=== PATIENT | male | born 1990 | race African-American/Black ===

== ENCOUNTER 2023-01-28 15:48 | Emergency (ER) | payer OTHER, SELFPAY ==
--- NOTE | 2023-01-28 15:57 | ED.GENADULT ---
HPI - General Adult General Chief complaint: Skin/Abscess/Foreign Body Stated complaint: Painful bump on forehead Time Seen by Provider: 01/28/23 15:59 Source: patient Mode of arrival: ambulatory Limitations: no limitations History of Present Illness HPI narrative: Patient is a 32 year old assigned male at with no reported medical history presenting to the emergency department today with a bump on his forehead. Patient states that over the last 2 weeks he has a forehead bump that is getting bigger. Patient denies any dizziness, lightheadedness, abdominal pain, nausea, vomiting, fever, chills, blurry vision, double vision, loss of vision, chest pain, difficulty breathing, shortness of breath, back pain, night sweats, pain with urination, increased urinary frequency, increased urinary urgency, blood in his urine or stool, syncope or a near syncopal episode, recent trauma or falls, bowel incontinence, bladder incontinence, bowel retention, bladder retention, or any other complaints at this time. Onset (ago): week(s) (2) Location: face Radiation: non-radiation Severity: mild Severity scale (1-10): 3 Relieving factors: none Exacerbating factors: none Associated symptoms: denies other symptoms Treatments prior to arrival: none Related Data Allergies Allergy/AdvReac Type Severity Reaction Status Date / Time No Known Allergies Allergy Verified 01/28/23 16:02 Review of Systems Constitutional: Constitutional: Reports no additional constitutional complaints, Denies chills, Denies fever(s) and Denies night sweats Eyes: Eyes: Reports no additional eye complaints, Denies blurry vision, Denies change in vision, Denies diplopia, Denies eye discharge, Denies loss of vision and Denies eye pain ENT: Denies dizziness Comments: forehead bump Cardiovascular: Cardiovascular: Reports no additional cardiovascular complaints, Denies chest pain, Denies lightheadedness, Denies Loss of Consciousness and Denies dyspnea Respiratory: Respiratory: Reports no additional respiratory complaints and Denies dyspnea Gastrointestinal: Gastrointestinal: Reports no additional gastrointestinal complaints, Denies abdominal pain, Denies melena, Denies hematochezia, Denies change in bowel habits and Denies change in stool character Genitourinary: Genitourinary: Reports no additional male genitourinary complaints, Denies hematuria, Denies oliguria, Denies difficulty urinating, Denies dysuria, Denies urinary frequency, Denies urinary hesitancy, Denies urinary incontinence and Denies urinary urgency Musculoskeletal: Musculoskeletal: Reports no additional musculoskeletal complaints, Denies numbness and Denies tingling Neurologic: Denies dizziness, Denies loss of vision, Denies numbness and Denies tingling Psychiatric: Psychiatric: Reports no additional psychiatric complaints Endocrine: Endocrine: Reports no additional endocrine complaints Hematologic/Lymphatic: Hematologic/Lymphatic: Reports no additional hematologic/lymphatic complaints Allergic/Immunologic: Allergic/Immunologic: Reports no additional allergic/immunologic complaints PMFSH Past Medical History Attestation statement: The following information was validated with the patient. Source: old records reviewed and nursing notes reviewed Physical Exam ED Vital Signs: Vital Signs - 24 hr 01/28/23 15:59 Temperature 97.0 F Pulse Rate 76 Respiratory Rate 16 Blood Pressure 115/70 Pulse Oximetry 96 Oxygen Delivery Method Room Air BMI result Body Mass Index 29.9 Const General: cooperative, no acute distress, alert and awake Nutritional Appearance: well nourished Orientation/consciousness: patient oriented x3 Limitations: no limitations [facility] Head: Yes atraumatic Head images: 1. soft and mobile structure consistent with a cyst or lipoma, no erythema, no warmth, no fluctuance Ears: hearing grossly normal bilaterally and external ears normal General nose exam: Normal external nose present, no nasal discharge noted and no epistaxis Face and sinus: Yes normal facial exam, No abrasion and No laceration Mouth: Normal oral and palatal mucosa present, no drooling and no muffled voice Eyes General: appearance normal, both eyes and all related structures Periorbital: periorbital findings normal Eyelids: Yes eyelids normal Conjunctivae: conjunctivae normal Pupils: Equal, round and reactive pupils present EOM: EOMs intact bilaterally Neck Neck: Yes normal visual inspection, Yes full ROM and Yes no lymphadenopathy Chest Chest palpation & inspection: normal inspection of the chest Resp Effort & Inspection: normal respiratory effort and able to speak in complete sentences GI Inspection: Yes normal to inspection Neuro General: patient oriented x3 and moves all extremities Cranial nerves: Yes Equal, round and reactive pupils present Cognition (Neuro): normal cognition Motor exam (neuro): 5/5 motor strength present throughout Sensory Exam: Normal double simultaneous stimulation for sensation Coordination: [id number] test normal Extrem General: Yes normal to inspection, Yes full ROM and Yes capillary refill normal Psych Appearance: grossly normal Mental Status: mental status grossly normal Affect: normal affect Attitude: cooperative Thought process: Normal thought process present Thought content: Normal thought content present Insight: Good insight present (Psych) Medical Decision Making Medical Decision Making MDM Narrative: Patient is a 32 year old assigned male at with no reported medical history presenting to the emergency department today with a forehead cyst. Patient's physical exam was as noted in the physical exam portion of this chart. I explained my physical exam findings to the patient. I answered all questions asked by the patient. I stressed the importance of the patient taking his medication as prescribed. I stressed the importance of the patient following up with his primary care provider and a general surgeon. I stressed the importance of the patient returning to the emergency department immediately if his symptoms were to worsen or if he were to develop any dizziness, shortness of breath, difficulty breathing, chest pain, blurry vision, loss of vision, nausea, vomiting, abdominal pain, fever, chills, back pain, or any other complaints. Patient verbalized agreement and understanding with this treatment plan and discharge. Differential Diagnosis Differential Diagnoses: The differential diagnosis associated with the presentation includes Cyst Sebaceous cyst Lipoma Discharge Plan Discharge Clinical Impression: Cyst of soft tissue Patient Disposition: Home, Self-Care Instructions: Soft Tissue Mass (ED) Additional Instructions: Follow up with your primary care provider and a general surgeon. Return to the emergency department immediately if your symptoms worsen or if you develop any dizziness, shortness of breath, difficulty breathing, chest pain, blurry vision, loss of vision, nausea, vomiting, abdominal pain, fever, chills, back pain, or any other complaints. [place] [facility] [place] (Call to establish and follow up with a general surgeon. ) [facility] [place] (Call to establish and follow up with a primary care provider. If you already have a primary care provider, please follow up with them.) [facility] [place] [facility] [place] (Call to establish and follow up with a primary care provider. If you already have a primary care provider, please follow up with them.) [facility] [place] [facility] [place] (Call to establish and follow up with a primary care provider. If you already have a primary care provider, please follow up with them.) Interventions: ED Discharge Assessment Last Done: 01/28/23 16:15 Discharge Date/Time: 01/28/23 16:16 Print Language: Serbian
[2023-01-28 15:59] VITALS: BP 115/70; PULSE 76; RESP 16; TEMP 36.1; O2SAT 96; BMI 29.9
== END 2023-01-28 16:16 | disposition home or self-care (01) ==
PROVIDERS: Emergency Provider Emergency Medicine
DX: D17.0 Benign lipomatous neoplasm of skin and subcutaneous tissue of head, face and neck (principal)
CPT/HCPCS: 99282

== ENCOUNTER 2023-02-02 08:19 | Outpatient (AMB) | payer OTHER, SELFPAY ==
--- NOTE | 2023-02-02 08:20 | MHC.OFFVIS ---
Intake Vital Signs 02/02/23 08:21 Height 5 ft 6 in Weight 191 lb BMI 30.8 BP 116/69 Blood Pressure Location Rt brachial Position Sitting Pulse 55 Intake Visit Reasons: Cyst/ Mid forehead Intake Note: This patient for an assessment for cyst on the forehead. Patient c/o; Onset several month, cyst on the forehead, moves around, increased in size. Catering Administrative Assistant Required: No Accompanied by: Other Relationship Allergies No Known Allergies Allergy (Verified 02/02/23 08:30) Medication List - Last Reconciled 02/02/23 by Filemon Mera MD No Known Home Meds HPI Cyst/ Mid forehead HPI Details 32-year-old male referred for a mass on the forehead. He said he has noticed this for about a couple months. He says he even went to the ER yesterday because of this. Was then referred to me. He denies any drainage from the area. He denies any other significant complaints. [facility] Medical History (Updated 02/02/23 @ 08:44 by Filemon Mera MD) Lipoma of forehead Surgical History History of hernia repair History of surgery on wrist Review of Systems Const Denies chills and Denies fever(s) Card Denies chest pain, Denies dyspnea and Denies dyspnea on exertion Resp Denies cough, Denies dyspnea and Denies dyspnea on exertion GI Denies hematochezia and Denies change in bowel habits Denies hematuria and Denies difficulty urinating Musc Denies back pain and Denies limited range of motion Neuro Denies focal weakness and Denies convulsions Psych Denies depression and Denies mood swings Physical Exam Vital Signs: Last Vital Signs Pulse 55 02/02/23 08:21 BP 116/69 02/02/23 08:21 BMI result Body Mass Index 30.8 HEENT Other: Well-defined, mobile mass, about 1.5 cm, on the forehead, nonfluctuant, Assessment & Plan Assessment & Plan (1) Lipoma of forehead: Code(s): D17.0 - Benign lipomatous neoplasm of skin and subcutaneous tissue of head, face and neck Plan: He has a well-defined, movable mass on the forehead as described above. This appears to be subcutaneous. This is likely to be a lipoma versus a cyst. I explained to him the technique of excision under and local anesthesia. I reviewed the risks including but not limited to bleeding, infections and poor healing. He understands and wants to proceed. His significant other was with him during the visit This will be scheduled at the minor procedure room. Coding Level of Care Code New Pt Level 3 (75903) Diagnoses Lipoma of forehead D17.0
[2023-02-02 08:21] VITALS: BP 116/69; PULSE 55; BMI 30.8
== END 2023-02-02 08:56 | disposition home or self-care (01) ==
PROVIDERS: Visit Provider Surgery
DX: D17.0 Benign lipomatous neoplasm of skin and subcutaneous tissue of head, face and neck (principal)
CPT/HCPCS: 99203

== ENCOUNTER → 2023-02-02 08:19 | Outpatient (BNVA) | payer OTHER, SELFPAY | PROVIDERS: Visit Provider Surgery | DX: D17.0 Benign lipomatous neoplasm of skin and subcutaneous tissue of head, face and neck (principal) | CPT/HCPCS: 99202 ==

== ENCOUNTER 2023-02-18 12:35 | Outpatient (REF) | payer OTHER, SELFPAY ==
[2023-02-18 12:38] VITALS: BMI 31.3
[2023-02-18 12:40] VITALS: BP 122/77; PULSE 60; RESP 16; TEMP 36.7; O2SAT 99
--- NOTE | 2023-02-18 13:02 | W.PM.OPN ---
Operative Note Operative Note Date of Service: 02/18/23 Narrative: Preop diagnosis: Mass on forehead Postop diagnosis: Epidermal inclusion cyst, forehead Procedure: Excision of epidermal inclusion cyst, forehead Surgeon: Filemon Mera MD Patient is a 32-year-old male with a subcutaneous mass on the forehead. He wanted this removed. He understood the technique of excision under local anesthesia. He was aware of the risks, benefits, and alternatives. He was brought to the minor procedure room. Was placed supine. The area of the cyst was prepped and draped. Lidocaine 1% was used for local anesthesia. A surgical time-out had been done. I made short incision on the skin overlying this mass using blade 15 and this carried down through the full-thickness of the skin and subcutaneous fat until a cyst capsule visualized. I sharply dissected the cyst capsule off of the rest of the subcutaneous layer circumferentially until this was delivered and sent as a specimen. This was consistent with an epidermal inclusion cyst . This was about a 7 mm diameter cyst. I closed the incision with full-thickness nylon 5 0 simple interrupted sutures. Steri-Strips were applied. The procedure was completed. He tolerated procedure well. There were no immediate complications. Estimated blood loss about 10 cc. He was given wound care instructions and will be seen in the office for removal sutures.
[2023-02-18 13:05] VITALS: BP 121/72; PULSE 55; RESP 16; O2SAT 95
== END 2023-02-18 12:36 | disposition home or self-care (01) ==
LOC: HO.MS 12:35
PROVIDERS: Visit Provider Surgery
PROC: (CPT 11441; principal; 2023-02-18 13:00)
DX: L72.0 Epidermal cyst (principal)
CPT/HCPCS: 11441; 88304

== ENCOUNTER → 2023-02-18 12:35 | Outpatient (BNV) | payer OTHER, SELFPAY | PROVIDERS: Visit Provider Surgery | DX: L72.0 Epidermal cyst (principal) | CPT/HCPCS: 11441 ==

== ENCOUNTER 2023-03-03 15:55 | Outpatient (AMB) | payer OTHER, SELFPAY ==
--- NOTE | 2023-03-03 15:59 | A.OFFVIS_ITS ---
Intake Intake Visit Reasons: S/P excision of mass from forehead Intake Note: This patient presents for a post-op assessment status post excision of epidermal cyst on the forehead. Patient c/o; reports no complaints at this time. Internet Marketer Required: No Accompanied by: Other Relationship Allergies No Known Allergies Allergy (Verified 03/03/23 16:03) HPI S/P excision of mass from forehead HPI Details He underwent excision of a cyst from his forehead under local anesthesia last 02/18/2023. He tolerated procedure well. He currently denies significant complaints. [facility] Medical History (Updated 03/03/23 @ 16:06 by Filemon Mera MD) Dermoid cyst of forehead Lipoma of forehead Surgical History History of hernia repair History of removal of cyst History of surgery on wrist Review of Systems Const Denies chills and Denies fever(s) Physical Exam Const General: comfortable and no acute distress HEENT Other: Excision site on the forehead is well healed, not infected Resp Effort & Inspection: normal respiratory effort Assessment & Plan Assessment & Plan (1) Dermoid cyst of forehead: Code(s): D23.39 - Other benign neoplasm of skin of other parts of face Plan: Status post excision. His path report shows an epidermal inclusion cyst. His incision is well healed. I removed his sutures. He can follow up on a p.r.n. basis. Coding Level of Care Code Global (32516) Diagnoses Dermoid cyst of forehead D23.39
== END 2023-03-03 16:05 | disposition home or self-care (01) ==
PROVIDERS: Visit Provider Surgery
DX: D23.39 Other benign neoplasm of skin of other parts of face (principal)
CPT/HCPCS: 99024

== ENCOUNTER → 2023-03-03 15:55 | Outpatient (BNVA) | payer OTHER, SELFPAY | PROVIDERS: Visit Provider Surgery ==

== ENCOUNTER 2024-03-27 16:27 | Emergency (ER) | payer OTHER, SELFPAY ==
--- NOTE | ~2024-03-27 | XR_ITS ---
EXAMINATION: XR LUMBOSACRAL SPINE CLINICAL INFORMATION: Severe lower back pain COMPARISON: None available. TECHNIQUE: Three views of the lumbosacral spine. FINDINGS: The vertebral bodies and posterior elements are normal. The disc spaces are preserved and the vertebral alignment is normal. The paraspinal soft tissues are normal. XR/XR lumbar spine 2-3V IMPRESSION: Unremarkable examination. Electronically signed by: Javier Kim MD 03/27/2024 07:50 PM EDT RP
--- NOTE | 2024-03-27 17:42 | ED_ITS ---
HPI - Back Pain/Injury General Chief Complaint: Back Pain/Injury Stated Complaint: LOWER BACK PAIN X 4 DAYS Time Seen by Provider: 03/27/24 19:56 Source: patient, RN notes reviewed and old records reviewed Mode of arrival: ambulatory Limitations: no limitations History of Present Illness ED Provider: Kirstin HPI Narrative: 33-year-old male presents for evaluation of lower back pain. Patient reports lower back pain for the last 4-5 days. His pain was previously worse on the right but now feels fairly central. He denies any specific injury. He does work at [employer] in his constantly lifting heavy. He denies any numbness, tingling, weakness. Denies any difficulty go into the bathroom He states ?I feel like I pulled a muscle. ? Related Data Previous Rx's ?Medication ?Instructions ?Recorded cyclobenzaprine 10 mg tablet 10 mg PO TID PRN muscle spasm #15 03/27/24 tabs dexamethasone 4 mg tablet 4 mg PO BID #6 tabs 03/27/24 Allergies Allergy/AdvReac Type Severity Reaction Status Date / Time No Known Allergies Allergy Verified 03/27/24 17:45 Review of Systems Constitutional: Constitutional: Denies body ache(s), Denies chills and Denies fever(s) Eyes: Eyes: Denies blurry vision ENT: Denies vertigo and Denies neck pain Cardiovascular: Cardiovascular: Denies chest pain Gastrointestinal: Gastrointestinal: Denies abdominal pain Musculoskeletal: Musculoskeletal: Reports back pain, Denies muscle weakness, Denies neck pain, Denies numbness, Reports stiffness and Denies tingling Integumentary/Breasts: Skin/Breast: Denies rash Neurologic: Denies vertigo, Denies numbness and Denies tingling PMFSH Past Medical History Medical History (Updated 03/27/24 @ 20:45 by Jonas Fulton) Dermoid cyst of forehead Lipoma of forehead Surgical History History of removal of cyst History of surgery on wrist History of hernia repair Social History Social History Smoked in Last 30 Days: No Advance Directives: No Advance Directives Information Provided: No Do you have a plan to hurt others: No Plan Physical Exam Vital Signs: Vital Signs: Last Vital Signs Temp 97.3 F 03/27/24 17:43 Pulse 70 03/27/24 17:43 Resp 16 03/27/24 17:43 BP 99/62 03/27/24 17:43 Pulse Ox 98 03/27/24 17:43 O2 Del Method Room Air 03/27/24 17:43 BMI result Body Mass Index 29.0 Const: General: healthy appearing, comfortable, no acute distress, alert and awake Nutritional Appearance: well nourished Orientation/consciousness: pa tient oriented x3 HEENT: Head: Yes normocephalic and Yes atraumatic Eyes: Eyelids: Yes eyelids normal Conjunctivae: conjunctivae normal Sclerae: sclerae normal Corneas: corneas normal Pupils: Equal, round and reactive pupils present EOM: EOMs intact bilaterally Neck: Neck: Yes full ROM Resp: Effort & Inspection: normal respiratory effort, able to speak in complete sentences and not labored Back/Spine/Pelvis: Other: Patient has vague tenderness across the lumbar region, there was no focal vertebral tenderness, no step-offs or deformities. Skin: General skin exam: elasticity normal Neuro: Other: Straight leg raise positive on left, negative on right General: patient oriented x3 Cranial nerves: Yes Equal, round and reactive pupils present and Yes Bilaterally intact EOM present Cognition (Neuro): normal cognition Deep tendon reflexes (DTR's): Right patellar reflex intensity grade: 2+ and Left patellar reflex intensity grade: 2+ Course Course Course Narrative: This is a Rapid Medical Examination (RME) performed by Florian Munoz PA-C in triage. Full HPI, ROS, assessment and treatment plan per primary provider in the Main ED. 33 yo male presenting to the ER from home via EMS for evaluation of severe lower back pain for the last 4-5 days that started after heavy item at work. pain is worse with any movement nirali standing up, remains in the lower back and he can barely walk. has midline and right lower lumbar tenderness on exam. he is in a wheelchair. no urinary symptoms. Plan: UA, XR lumbar spine Medications Administered Discontinued Medications Generic Name Dose Route Start Last Admin Trade Name Freq PRN Reason Stop Dose Admin Ketorolac Tromethamine 30 mg 03/27/24 20:08 03/27/24 20:19 Ketorolac Tromethamine 30 Mg/Ml Vial IM 03/27/24 20:09 30 mg ONCE ONE Administration Medical Decision Making Medical Decision Making [facility] Narrative: 33-year-old male presents for evaluation of lower back pain. He has no specific injury, he has no warning signs for cauda equina syndrome. He reports feeling better after receiving Toradol. Plan for discharge with symptomatic treatment. Differential Diagnosis Differential Diagnoses: The differential diagnosis associated with the presentation includes Lumbar strain Radiculopathy Sciatica Lower back pain Arthritis Spondylolisthesis Disc herniation Radiology Impression Discussion of test interpretation with radiology: I have reviewed the radiologist's reading. (FINDINGS: The vertebral bodies and posterior elements are normal. The disc spaces are preserved and the vertebral alignment is normal. The paraspinal soft tissues are normal. XR/XR lumbar spine 2-3V IMPRESSION: Unremarkable examination. ) Discharge Plan Discharge Clinical Impression: Strain of lumbar region Patient Disposition: Home, Self-Care Instructions: Acute Low Back Pain (ED) Additional Instructions: Your x-ray did not show any abnormalities. Your pain is most likely related to a muscle spasm If your pain persists were returns, I recommend following up with your primary doctor, you may benefit from an outpatient MRI You may call the office of Dr. Solorio's, neruosp[facility] surgery if you are unable to PCP Use ibuprofen/Tylenol for pain. Use cyclobenzaprine as needed for muscle spasms. This may make you sleepy, did not drink alcohol or drive taking it You may also use warm compresses Take dexamethasone twice daily for the next 3 days Prescriptions: New dexamethasone 4 mg tablet 4 mg PO BID Qty: 6 0RF cyclobenzaprine 10 mg tablet 10 mg PO TID PRN (Reason: muscle spasm) Qty: 15 0RF Referrals: Lucas Atkinson MD, PhD [Physician] - (acute on chronic back pain) Print Language: Palestinian
[2024-03-27 17:43] VITALS: BP 116/64; BP 99/62; PULSE 70; PULSE 78; RESP 16; TEMP 36.3; O2SAT 98; O2SAT 99; BMI 29.0
[2024-03-27] MEDS: Ketorolac Tromethamine 30 MG/ML VIAL IM (20:19)
[2024-03-27 20:57] VITALS: BP 104/53; PULSE 55; RESP 16; TEMP 37.2; O2SAT 100
[2024-03-27 21:09] VITALS: BP 104/53; PULSE 55; RESP 16; TEMP 37.2; O2SAT 100
== END 2024-03-27 21:13 | disposition home or self-care (01) ==
PROVIDERS: Emergency Provider Emergency Medicine
DX: S39.012A Strain of muscle, fascia and tendon of lower back, initial encounter (principal); X58.XXXA Exposure to other specified factors, initial encounter; Y93.89 Activity, other specified; Y92.89 Other specified places as the place of occurrence of the external cause; Y99.8 Other external cause status
CPT/HCPCS: 72100; 96372; 99284; J1885